=== PATIENT | female | born 1965 | race African-American/Black ===

== ENCOUNTER 2023-04-23 16:56 | Emergency (ER) | payer OTHER ==
[~2023-04-23] VITALS: Ht 165.1 cm; Wt 132.0 kg
[2023-04-23 17:06] VITALS: BP 125/84
[2023-04-23] MEDS ORDERED: LIDOCAINE HCL 1% 20ML VIAL (Pyxis) INJ INFIL ONE (18:30)
[2023-04-23] MEDS ORDERED: TETANUS, DIPHTHERIA, PERTUSSIS VAC/PF 0.5ML (>10YR OLD) IM ONE (18:30)
[2023-04-23] MEDS ORDERED: BACITRACIN ZINC OINT UDPKT TOP ONE (19:30)
[2023-04-23] MEDS ORDERED: BO1 TP (19:31)
== END 2023-04-23 20:27 | disposition home or self-care (01) ==
LOC: ER 17:15
DX: S61.211A Laceration without foreign body of left index finger without damage to nail, initial encounter (principal); W26.0XXA Contact with knife, initial encounter; Y93.G3 Activity, cooking and baking; Y92.89 Other specified places as the place of occurrence of the external cause; Y99.8 Other external cause status
CPT/HCPCS: 12001; 90471; 90715; 99283; J3490; Z7610